=== PATIENT | female | born 1990 | race Caucasian/White ===

== ENCOUNTER 2018-08-22 19:18 | Emergency (ER) | payer OTHER, SELFPAY ==
[2018-08-22 19:19] VITALS: BP 132/69; PULSE 97; RESP 18; TEMP 37.2; O2SAT 98; BMI 26.6
[2018-08-22 19:43] LABS: Red Blood Cells-Urine 0 SEEN /hpf (0-5)
[2018-08-22 19:46] LABS: Color, Urine Yellow (Yellow); Glucose, Dipstick Normal (Normal); Ketone-Dipstick 5 mg/dl (Negative); Leukocyte Esterase-Dipstick 25 /ul (Negative); Nitrite-Dipstick Negative (Negative); Occult Blood-Urine 25 /ul (Negative); Protein-Dipstick 15 mg/dl (Negative); Specific Gravity, Urine 1.025 (1.002-1.030); Urine Clarity Cloudy (Clear); Urine Urobilinogen Normal (Normal)
[2018-08-22 19:51] LABS: Urine Bilirubin Dipstick 1 mg/dL (Negative)
[2018-08-22 19:52] LABS: Mucous, Urine 4+ /hpf (<or=2+)
[2018-08-22 19:54] LABS: Bacteria RARE /hpf (None Seen); Squamous Epithelial Cells - UA 5-10 SEEN /hpf (5-10); White Blood Cells 0-5 SEEN /hpf (0-5)
--- NOTE | 2018-08-22 20:53 | CT_ITS ---
STUDY: CT ABDOMEN AND PELVIS WITH CONTRAST REASON FOR EXAM: Female, 27 years old. Right-sided abdominal pain and diarrhea. RADIATION DOSAGE (If Supplied By Facility): CTDIvol = ( 14.34 ) mGy, DLP = ( 799.35 ) mGycm TECHNIQUE: Transaxial images were obtained from the dome of the diaphragm to the symphysis pubis without oral contrast. 100 ml of Isovue 300 contrast was administered. Sagittal and coronal images were reconstructed. Individualized dose optimization techniques were used for this CT. COMPARISON: None. FINDINGS: The visualized lung bases are unremarkable. The visualized portions of the heart are within normal limits. Subcentimeter cyst versus small insignificant in dimension in the posterior right liver dome. Otherwise normal liver. Normal gallbladder and extrahepatic biliary system. Normal spleen. Normal pancreas. Normal bilateral adrenal glands. Normal right kidney. 1 focal cortical scar in the posterior lower pole of the left kidney. Otherwise normal left kidney. Negative for hydronephrosis or stones. Partly fluid-filled nondistended stomach. Normal small intestine. Semisolid appearing stool of the rectosigmoid colon. The appendix is visualized and appears normal. Normal abdominal aorta. Normal inferior vena cava. Normal retroperitoneum. Normal urinary bladder. Negative for pelvic mass or free fluid of the pelvis. Normal abdominal wall. Normal osseous structures. CT/Abdomen/Pelvis W IV Cont ONLY IMPRESSION: Negative for evidence of bowel obstruction or perforation. Negative for inflammatory bowel changes. A normal appendix is identified. There is semisolid appearing stool of the distal colon consistent with a diarrheal state without suggesting a specific etiology. Negative for colon thickening or pericolonic edema. Normal size of the kidneys bilaterally without hydronephrosis or stones. One old scar of the left kidney. Negative for pelvic mass or free fluid of the pelvis. Electronically Signed: Annabelle Sanchez MD at 23:22 EDT , Service support ,
[2018-08-22] MEDS: 0.9% Normal Saline 1,000 ML 1000 ML IV (21:06)
[2018-08-22 21:18] LABS: Absolute Lymphocyte Count 0.75 X10^3/ul (0.83-4.51); Absolute Neutrophil Count 2.1 X10^3/uL (2.0-7.7); Basophil# 0.03 X10^3/uL; Basophil% 0.9 % (0-1); Eosinophil# 0.04 X10^3/uL; Eosinophils% 1.2 % (0-5); Hemoglobin 14.2 g/dl (12.0-15.0); Lymphocyte # 0.75 X10^3/ul (4.0); Lymphocyte % 21.7 % (19-41); Mean Corp Hgb Conc 33.8 g/gl (32-36); Mean Corpuscular Hgb 29.6 pg (27.0-32.0); Mean Corpuscular Volume 87.7 fL (81-99); Mean Platelet Vol. 10.2 fl (6.2-12.0); Monocyte# 0.53 X10^3/uL; Monocyte% 15.3 % (0-10); Neutrophil # 2.11 X10^3/uL (2.7-7.7); Neutrophil % 60.9 % (47-70); Platelet Count 176 K/mm3 (150-450); RBC Distribution Width CV 12.5 % (11.6-14.6); RBC Distribution Width SD 40.5 fl (35.1-43.9); Red Blood Count 4.79 M/mm3 (4.2-5.4); White Blood Count 3.5 K/mm3 (4.4-11.0)
[2018-08-22 21:20] LABS: POSITIVE COUNT NO; POSITIVE DIFFERENTIAL NO; POSITIVE MORPHOLOGY NO
[2018-08-22 21:37] LABS: ALB/GLOB Ratio 0.9 RATIO (0.9-2.4); AST(SGOT) 15 U/L (15-37); Alanine Aminotransfer ALT/SGPT 23 U/L (13-56); Albumin, Serum 3.6 g/dL (3.2-5.0); Alkaline Phosphatase 81 U/L (45-117); Anion Gap 6 (5-15); BUN 11 mg/dL (7-18); BUN/Creat Ratio 13.8 RATIO (10-20); Calcium,Total 8.7 mg/dL (8.5-10.1); Chloride 106 mmol/L (98-107); EST Glomerular Filtration Rate 90 mL/min (>60); Est Glom Filt Rate - Afr Amer 109 mL/min (>60); Estimated Creatinine Clearance 101.81 ml/min; Globulin 4.1 g/dL (2.2-4.2); Glucose 91 mg/dL (74-106); Lipase 98 U/L (73-393); Potassium 3.7 mmol/L (3.5-5.1); Protein, Total 7.7 g/dL (6.4-8.2); Sodium Level 139 mmol/L (136-145)
[2018-08-22 21:52] LABS: Pregnancy, Serum, hCG Quali. NEGATIVE Negative (0-9 Nonpreg)
--- NOTE | 2018-08-22 23:30 | ED.VISSUMM ---
- ER Visit Summary Date of Service: 08/22/18 Chief Complaint: Abdominal pain and diarrhea History of Present Illness: The patient is a 27 F who states that on Friday she began to feel bloated and having some abdominal discomfort. She describes it as sometimes aching sometimes cramping sometimes sharp sometimes dull and intermittent. This continued throughout the night on Friday and by she thought maybe she is getting a urinary tract infection she went to the urgent care had a negative dip and was prescribed Macrobid. That time she got home she was having diarrhea. She now notes greater than 10 loose stools per day since. No definitive fever but notes some chills and some sweats. No other recent antibiotics and no bad food exposures. Nobody else at home with same. Physical Examination: Afebrile vital signs are stable Gen: Well-nourished well-developed Head: Normocephalic atraumatic Eyes: Perrl EOMI ENT: TMs clear no rhinorrhea moist mucous membranes Neck: Supple no lymphadenopathy no JVD nontender CVS: Regular rate rhythm no murmurs normal S1-S2 Respiratory: No distress clear to auscultation bilaterally chest nontender Abdomen: Soft nontender nondistended normal bowel sounds no masses Back: Nontender Extremity: Nontender no edema Skin: Normal color no rash Neuro: alert orientated ?3 CN II-XII intact normal strength sensation reflexes gait cerebellar Psych: Normal affect normal mood Test Results: CBC CMP negative. Patency test negative. Urinalysis negative. CT of pelvis did not demonstrate any colitis to demonstrate some diarrheal stool. Emergency Department Course and Treatment: Patient will be discharged home with some Bentyl instructions for as needed Imodium and fluid hydration. Return if worsening or concerns Impression: 1. Abdominal pain 2. Diarrhea This note was generated with [employer] dictation software. It may contain incorrect words, spelling, and punctuation that were not noted in review of the chart prior to signing ED Disposition - Plan for ED Patient: Disposition: Home or Assisted Living Chief Complaint: Abd Pain Instructions: ED Diarrhea Viral Prescriptions: Dicyclomine HCl [Bentyl] 20 mg PO TIDAC PRN #20 cap PRN Reason: abdominal cramping Referrals: Rogers Villeda MD [STAFF PHYSICIAN] -
[2018-08-22 23:53] VITALS: BP 120/63; PULSE 67; RESP 14; O2SAT 98
== END 2018-08-22 23:54 | disposition home or self-care (01) ==
PROVIDERS: Emergency Provider Emergency Medicine
DX: R10.9 Unspecified abdominal pain (principal); R19.7 Diarrhea, unspecified; R11.0 Nausea; R35.0 Frequency of micturition
CPT/HCPCS: 74177; 80053; 81001; 83690; 84703; 85025; 96360; 99284; Q9967

== ENCOUNTER 2021-03-30 09:48 | Outpatient (RCR) | payer OTHER, SELFPAY ==
[2021-03-14 12:07] VITALS: BMI 28.1
== END 2021-03-30 23:59 ==
LOC: EMPH 09:48
PROVIDERS: Visit Provider Family Medicine Geriatric Medicine
DX: Z03.818 Encounter for observation for suspected exposure to other biological agents ruled out (principal)
CPT/HCPCS: 87426

== ENCOUNTER 2021-04-26 10:05 | Outpatient (RCR) | payer OTHER, SELFPAY ==
[2021-03-14 12:07] VITALS: BMI 28.1
== END 2021-04-30 23:59 ==
LOC: EMPH 10:05
PROVIDERS: Visit Provider Family Medicine Geriatric Medicine
DX: Z03.818 Encounter for observation for suspected exposure to other biological agents ruled out (principal)
CPT/HCPCS: 87426

== ENCOUNTER 2021-05-29 13:22 | Outpatient (RCR) | payer OTHER, SELFPAY ==
[2021-03-14 12:07] VITALS: BMI 28.1
== END 2021-05-30 23:59 ==
LOC: EMPH 13:22
PROVIDERS: Visit Provider Family Medicine Geriatric Medicine
DX: Z03.818 Encounter for observation for suspected exposure to other biological agents ruled out (principal)
CPT/HCPCS: 87426

== ENCOUNTER 2021-06-29 13:05 | Outpatient (RCR) | payer OTHER, SELFPAY ==
[2021-03-14 12:07] VITALS: BMI 28.1
== END 2021-06-29 16:00 | disposition home or self-care (01) ==
LOC: EMPH 13:05
PROVIDERS: Visit Provider Family Medicine Geriatric Medicine
DX: Z03.818 Encounter for observation for suspected exposure to other biological agents ruled out (principal)
CPT/HCPCS: 87426

== ENCOUNTER 2021-07-12 11:41 | Outpatient (RCR) | payer OTHER, SELFPAY ==
[2021-06-27 09:08] VITALS: BMI 28.1
== END 2021-07-31 23:59 ==
LOC: EMPH 11:41
PROVIDERS: Referring Provider Family Medicine Geriatric Medicine; Visit Provider Family Medicine Geriatric Medicine
DX: Z03.818 Encounter for observation for suspected exposure to other biological agents ruled out (principal)
CPT/HCPCS: 87426